=== PATIENT | male | born 1995 ===

== ENCOUNTER 2023-07-28 07:38 | Outpatient (AMB) | payer BC, SELFPAY ==
--- NOTE | 2023-07-28 07:39 | A.OFFVIS_ITS ---
Vital Signs 07/28/23 07:41 Height 5 ft 9 in Weight 200 lb BMI 29.5 BP 122/78 Blood Pressure Location Rt brachial Position Sitting Pulse 88 Pulse Source Pulse Oximeter Pulse Oximetry (%) 99 Oxygen Delivery Method Room Air Intake Visit Reasons: [employer] [place] ok Per Antoinette Intake Note: patient has lack of energy during the day, hard to focus,concentrate, fatigue and lethargic and has headaches . Allergies No Known Allergies Allergy (Verified 07/28/23 07:43) HPI Comments Details: 27-yr-old male presents for new in-person patient visit for sleep consultation. Patient reports that he is having worsening sleep issues. He states he has difficulty falling asleep, poor sleep quality, unrefreshing sleep, brain fog, lethargy. He is quite groggy in the morning. It is very difficult to get OOB in the morning, and it takes a few hours for his sleep fog to clear. He had a recent inconclusive HST at [facility]. Recent CBC, CMP, TSH, Lyme- WNL, w/ exception of WBC 12.2 H. Vit D 29 L. Sleep questionnaire: Have you ever been diagnosed with a sleep disorder? no Have you ever had a sleep study in the past? yes Have you ever been treated for a sleep disorder? no Do you take medications for a sleep disorder? no Do you have difficulty initiating sleep? yes Do you have difficulty maintaining sleep? no- but has episodes where he feels he wakes up and can see his bedroom door Do you wake up tired? yes Do you have daytime tiredness or fatigue? yes Do you easily fall asleep when inactive? yes Do you snore? yes Do you wake up gasping at night? no Do you have episodes of apneas? no Do you have episodes of nocturnal chest pain or dyspnea? has episodes of feeling like he is not breathing. 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 yes Do you have headaches upon awakening? yes. has had frequent headaches for a few years. Do you wake up with dry mouth or throat? yes Do you have GERD? mild Do you have nocturia? no Do you have nocturnal leg cramps? no Do you have symptoms of restless legs? prone to tap his leg- but denies urge to move Do you act out your dreams? no Do you have sleep paralysis? no Do you have drop attacks? no Do you ever have hypnogenic hallucinations? no Hypersomnolence questionnaire: Have you ever had episodes of sudden weakness? no Have you ever had episodes of sudden weakness associated with strong emotions? no Sleep hygiene questionnaire: What is your usual sleep routine? Usual bedtime is at 11pm-12am; Usual wake-up time is at 10-11am. But his alarm his set for 6-7am. Do you take naps? Somedays Is your sleep environment cool, dark, and quiet? Yes Do you exercise? Tries to cycle every other day Do you take caffeine or other stimulants? Coffee- 1-2 cups of coffee in morning. Do you use electronics in bed? Yes: Phone- as he is falling asleep What is your work schedule? 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 FOR[facility], [facility] Surgical History (Updated 07/28/23 @ 07:44 by TERRY Bear) H/O knee surgery Family History (Updated 07/28/23 @ 07:44 by TERRY Bear) Father Parkinson disease Mother No problems noted. Social History (Updated 07/28/23 @ 07:45 by TERRY Bear) Alcohol intake: current Patient Tobacco Use Status: Current someday Tobacco user Physical Exam Vital Signs: Last Vital Signs Pulse 88 07/28/23 07:41 BP 122/78 07/28/23 07:41 Pulse Ox 99 07/28/23 07:41 Oxygen Delivery Method Room Air 07/28/23 07:41 BMI result Body Mass Index 29.5 Const General: no acute distress Orientation/consciousness: patient oriented x3 Resp Effort & Inspection: normal respiratory effort and able to speak in complete sentences Cardio Rate: regular rate Rhythm: regular rhythm Neuro General: patient oriented x3 Psych Mental Status: mental status grossly normal Speech and movement: Clear speech present Attitude: cooperative Assessment & Plan Assessment & Plan (1) Hypersomnia: Code(s): G47.10 - Hypersomnia, unspecified Category: Medical (2) Fatigue: Code(s): R53.83 - Other fatigue Category: Medical (3) Snoring: Code(s): R06.83 - Snoring Category: Medical (4) Sleep difficulties: Code(s): G47.9 - Sleep disorder, unspecified Category: Medical Plan Recent HST- inconclusive. Pt is advised to undergo in-lab sleep study to further assess for sleep apnea and PLMS. Check f/u CBC. Vit D supplement. Will f/u with pt after study to discuss results and appropriate treatment options. Monitor headaches. Pt to call with any worsening concerns or questions. Orders: Orders Complete Blood Count Auto Diff 07/28/23 R53.83 - Other fatigue RT PSG in-lab sleep study 07/28/23 G47.10 - Hypersomnia, unspecified, G47.9 - Sleep disorder, unspecified, R06.83 - Snoring Coding Level of Care Code New Pt Level 4 ([id number]) Diagnoses Hypersomnia G47.10 Fatigue R53.83 Snoring R06.83 Sleep difficulties G47.9
[2023-07-28 07:41] VITALS: BP 122/78; PULSE 88; O2SAT 99; BMI 29.5
== END 2023-07-28 08:46 | disposition home or self-care (01) ==
PROVIDERS: PCP Family Medicine; Visit Provider Nurse Practitioner Family
DX: G47.10 Hypersomnia, unspecified (principal); R53.83 Other fatigue; R06.83 Snoring; G47.9 Sleep disorder, unspecified
CPT/HCPCS: 99204

== ENCOUNTER 2023-07-28 07:38 | Outpatient (REF) | payer BC, SELFPAY ==
[2023-07-28 17:59] LABS: MANUAL DIFF FLAG NO
[2023-07-28 18:25] LABS: Basophils Absolute Auto 0.1 X10*3/uL (0.0-0.2); Basophils Percent Auto 1.3 % (0-2); Eosinophils Absolute Auto 0.3 X10*3/uL (0.0-0.4); Eosinophils Percent Auto 4.1 % (0-4); Hematocrit 44.6 % (42.0-52.0); Hemoglobin 15.5 g/dl (14.0-18.0); Imm Gran Abs Auto 0.02 X10*3/uL (0.00-0.03); Imm Gran Pct Auto 0.3 % (0.0-0.4); Lymphocytes Absolute Auto 1.8 X10*3/uL (1.2-4.9); Lymphocytes Percent Auto 26.1 % (20-40); Mean Corpuscular HGB Conc 34.8 g/dl (31.0-36.0); Mean Corpuscular Hemoglobin 29.9 pg (27.0-33.0); Mean Corpuscular Volume 85.9 fL (80.0-98.0); Monocytes Absolute Auto 0.7 X10*3/uL (0.1-1.2); Monocytes Percent Auto 9.8 % (2-11); Neutrophils Absolute Auto 4.1 x10*3/uL (2.0-8.3); Neutrophils Percent Auto 58.4 % (45-73); Platelet Count 255 X10*3/uL (160-400); Red Blood Count 5.19 X10*6/uL (4.60-5.80); White Blood Count 7.1 X10*3/uL (4.8-10.8)
== END 2023-07-28 07:39 | disposition home or self-care (01) ==
LOC: HO.HKASLDS 07:38
PROVIDERS: PCP Family Medicine; Visit Provider Nurse Practitioner Family
DX: R53.83 Other fatigue (principal)
CPT/HCPCS: 36415; 85025

== ENCOUNTER → 2023-09-20 20:30 | Outpatient (REF) | payer BC, SELFPAY | LOC: HO.SL 20:30 | PROVIDERS: Visit Provider Nurse Practitioner Family | DX: G47.9 Sleep disorder, unspecified (principal); G47.10 Hypersomnia, unspecified; R06.83 Snoring | CPT/HCPCS: 95810 ==

== ENCOUNTER → 2023-09-20 21:45 | Outpatient (BNV) | payer BC, SELFPAY | PROVIDERS: Visit Provider Psychiatry & Neurology Neurology | DX: R06.83 Snoring (principal) | CPT/HCPCS: 95810 ==